=== PATIENT | female | born 1990 | race Two or more races ===

== ENCOUNTER → 2024-09-23 | Emergency (ER) | payer OTHER ==
[~2024-09-23] VITALS: Ht 160 cm; Wt 72.6 kg
[~2024-09-23] MED LIST: BACTROBAN OINT22 GM; BACTROBAN22 GM TP; CEFADROXIL500 MG; KETOROLAC TROMETHAMINE 30 MG VIAL IM STA; KETOROLAC TROMETHAMINE 30 MG VIAL ONE; N
[2024-09-23 10:49] LABS: BASO % 1.1 % (0.1-1.2); EOS # 0.45 (0.04-0.54); EOS % 7.2 % (0.7-7.0); HEMATOCRIT 38.7 % (34.1-44.9); HEMOGLOBIN 13.7 g/dL (11.2-15.7); LYMPH # 1.43 (1.18-3.74); LYMPH % 22.8 % (19.3-53.1); MEAN CORPUSCULAR HEMOGLOBIN 29.8 pg (25.6-32.2); MONO # 0.51 (0.24-0.82); MONO % 8.1 % (4.7-12.5); NEUT % 60.6 % (34.0-71.1); PLATELET COUNT 338 K/uL (163-369); RED CELL DISTRIBUTION WIDTH 12.6 % (11.6-14.4)
[2024-09-23 11:41] LABS: CALCIUM 8.9 mg/dL (8.5-10.1); CREATININE SERUM 0.86 mg/dL (0.55-1.02); GFR 75.99; POTASSIUM 4.52 mEq/L (3.5-5.1)
== END | disposition home or self-care (01) ==
LOC: ER 09:27
PROVIDERS: General Practice
DX: R51.9 Headache, unspecified (principal)